=== PATIENT | male | born 1955 | race Caucasian/White ===

== ENCOUNTER 2022-07-21 17:31 | Inpatient (IN) | payer SELFPAY ==
[~2022-07-21] VITALS: Ht 172.7 cm; Wt 78.9 kg
[2022-07-21 18:52] LABS: BASOPHILS % 1.1 % (0.0-2.0); EOSINOPHILS % 0.1 % (0.0-5.0); HEMATOCRIT. 35.5 % (42.0-52.0); HEMOGLOBIN. 11.9 g/dL (14.0-18.0); LYMPHOCYTES % 19.9 % (20.0-50.0); MEAN CORPUSCULAR HEMOGLOBIN 29.5 pg (28.0-32.0); MEAN PLATELET VOLUME 8.1 fl (7.4-10.4); MONOCYTES % 12.3 % (2.0-8.0); NEUTROPHILS % 66.6 % (40.0-76.0); PLATELET 242 x1000/uL (130-400); RED BLOOD CELL COUNT 4.03 mill/uL (4.7-6.1); RED CELL DISTRIBUTION WIDTH 17.9 % (11.6-14.6)
[2022-07-21 19:00] LABS: INR 1.1; PROTHROMBIN TIME 11.6 sec (9.6-11.0)
[2022-07-21 19:01] LABS: CHLORIDE 107 mEq/L (98-107)
[2022-07-21 19:06] LABS: ETHANOL BLOOD < 10 mg/dL (-10)
[2022-07-21] MEDS ORDERED: SODIUM POLYSTYRENE SULFONATE 15 G/60 ML BOT PO ONE (21:15)
[2022-07-21] MEDS ORDERED: ALBUTEROL (0.083%) 2.5MG/3ML NEB HHN ONE (21:15)
[2022-07-21] MEDS ORDERED: SODIUM BICARBONATE 8.4% 1 MEQ/ML 50ML SYR IV ONE (21:15)
[2022-07-21] MEDS ORDERED: DEXTROSE 50% WATER 50ML SYRINGE IV ONE (21:15)
[2022-07-21] MEDS ORDERED: INSULIN REGULAR (HUMULIN R) 300UNITS/3ML VIAL IV ONE (21:15)
[2022-07-21] MEDS ORDERED: LORAZEPAM 2MG/ML CPJ IV ONE (22:45)
[2022-07-21] MEDS ORDERED: CLONIDINE 0.1MG TABLET PO PRN (23:45)
[2022-07-21] MEDS ORDERED: MVI, ADULT NO.1 10 ML, FOLIC ACID 1 MG, THIAMINE HCL 100 MG in SODIUM CHLORIDE 0.9% 1,0... IV NR ×4 (23:45)
[2022-07-21] MEDS ORDERED: ONDANSETRON HCL 4MG/2ML INJ IV PRN (23:45)
[2022-07-21] MEDS ORDERED: ACETAMINOPHEN 325MG TABLET PO PRN ×2 (23:45)
[2022-07-21] MEDS ORDERED: DIPHENHYDRAMINE 50MG/ML VIAL IV PRN (23:45)
[2022-07-22] VITALS (7 sets, daily range): BP systolic 99–147; BP diastolic 62–76
[2022-07-22 06:42] LABS: HEMATOCRIT. 32.1 % (42.0-52.0); MEAN CORPUSCULAR HEMOGLOBIN 29.7 pg (28.0-32.0); MEAN CORPUSCULAR VOLUME 86.4 fL (80.0-94.0); MEAN PLATELET VOLUME 7.8 fl (7.4-10.4); PLATELET 208 x1000/uL (130-400); RED BLOOD CELL COUNT 3.72 mill/uL (4.7-6.1); RED CELL DISTRIBUTION WIDTH 17.7 % (11.6-14.6)
[2022-07-22 07:11] LABS: CHLORIDE 108 mEq/L (98-107)
[2022-07-22 07:20] LABS: PHOSPHORUS 5.9 mg/dL (2.5-4.9)
[2022-07-22] MEDS: LACTULOSE 20G/30ML UDC PO SCH ×3 (08:29→22:21)
[2022-07-22 08:51] LABS: PLATELET ESTIMATE NORMAL
[2022-07-22 12:55] LABS: CREATINE KINASE 444 IU/L (39-308)
[2022-07-22] MEDS: DEXT 5%/0.2% NACL 1,000 ML IV SCH (16:31)
[2022-07-22 17:02] LABS: CLARITY URINE CLEAR (CLEAR); COLOR URINE YELLOW (YELLOW); KETONES URINE NEGATIVE (NEGATIVE); LEUKOCYTE ESTERASE URINE NEGATIVE (NEGATIVE); NITRITE URINE NEGATIVE (NEGATIVE); OCCULT BLOOD URINE 3+ (NEGATIVE); PROTEIN URINE 2+ (NEGATIVE); SPECIFIC GRAVITY URINE 1.017 (1.005-1.030)
[2022-07-23] VITALS: BP 117/46
[2022-07-23] MEDS: DEXT 5%/0.2% NACL 1,000 ML IV SCH ×3 (03:28→23:58)
[2022-07-23 04:00] VITALS: BP 120/52
[2022-07-23] MEDS: LACTULOSE 20G/30ML UDC PO SCH ×3 (06:49→21:48)
[2022-07-23 08:00] VITALS: BP 144/60
[2022-07-23 08:26] LABS: PHOSPHORUS 3.6 mg/dL (2.5-4.9)
[2022-07-23 12:00] VITALS: BP 140/60
[2022-07-23 16:00] VITALS: BP 152/110
[2022-07-23 20:00] VITALS: BP 140/58
[2022-07-24] VITALS: BP 126/60
[2022-07-24 04:00] VITALS: BP 125/46
[2022-07-24 05:41] LABS: BASOPHILS % 1.9 % (0.0-2.0); EOSINOPHILS % 1.6 % (0.0-5.0); HEMATOCRIT. 28.8 % (42.0-52.0); LYMPHOCYTES % 29.8 % (20.0-50.0); MEAN CORPUSCULAR HEMOGLOBIN 30.3 pg (28.0-32.0); MEAN PLATELET VOLUME 8.5 fl (7.4-10.4); MONOCYTES % 12.8 % (2.0-8.0); NEUTROPHILS % 53.9 % (40.0-76.0); PLATELET 177 x1000/uL (130-400); RED CELL DISTRIBUTION WIDTH 17.3 % (11.6-14.6)
[2022-07-24] MEDS: LACTULOSE 20G/30ML UDC PO SCH ×2 (05:52→15:49)
[2022-07-24] MEDS: DEXT 5%/0.2% NACL 1,000 ML IV SCH (07:45)
[2022-07-24 08:00] VITALS: BP 140/56
[2022-07-24 12:00] VITALS: BP 143/80
[2022-07-24 13:53] VITALS: BP 125/79
== END 2022-07-24 16:25 | disposition home or self-care (01) | DRG 469 ==
LOC: ER 17:31 → MICUSO 07-22 02:23 → EDBEDREQDT 07-22 02:35 → EDBEDREQ 07-22 02:35 → EDBEDREQTM 07-22 02:35 → 7WST 07-22 05:19
PROVIDERS: ADMIT Internal Medicine; ATTEND Internal Medicine
DX: N17.9 Acute kidney failure, unspecified (principal); K76.7 Hepatorenal syndrome; G93.41 Metabolic encephalopathy; E87.1 Hypo-osmolality and hyponatremia; K76.82 Hepatic encephalopathy; S81.801A Unspecified open wound, right lower leg, initial encounter; E87.5 Hyperkalemia; D64.9 Anemia, unspecified; E11.22 Type 2 diabetes mellitus with diabetic chronic kidney disease; I12.9 Hypertensive chronic kidney disease with stage 1 through stage 4 chronic kidney disease, or unspecified chronic kidney disease; K74.60 Unspecified cirrhosis of liver; N18.9 Chronic kidney disease, unspecified; Z82.49 Family history of ischemic heart disease and other diseases of the circulatory system; M79.604 Pain in right leg; X58.XXXA Exposure to other specified factors, initial encounter; Y93.9 Activity, unspecified; Y92.89 Other specified places as the place of occurrence of the external cause; Y99.8 Other external cause status
CPT/HCPCS: 36415; 76770; 80048; 80053; 80320; 81003; 82140; 82550; 83735; 84100; 85025; 93005; 97162; 99285; J1815; J2060; J3411; J3490; J7030; G0480